=== PATIENT | male | born 1995 | race Two or more races ===

== ENCOUNTER 2024-09-22 09:24 | Emergency (ER) | payer MEDICAID, OTHER ==
[~2024-09-22] VITALS: Ht 182.9 cm; Wt 122.5 kg
[2024-09-22 09:30] VITALS: BP 153/83; TEMP 98.4; O2SAT 99
[2024-09-22] MEDS ORDERED: IBUP-1953 PO (11:00)
== END 2024-09-22 11:34 | disposition home or self-care (01) ==
LOC: ER 09:30
DX: S93.401A Sprain of unspecified ligament of right ankle, initial encounter (principal); Z88.0 Allergy status to penicillin; X58.XXXA Exposure to other specified factors, initial encounter; Y93.9 Activity, unspecified; Y92.89 Other specified places as the place of occurrence of the external cause; Y99.8 Other external cause status
CPT/HCPCS: 73610-TC